=== PATIENT | female | born 1990 | race Caucasian/White ===

== ENCOUNTER 2016-09-25 22:01 | Emergency (ER) | payer SELFPAY ==
[~2016-09-25] VITALS: Ht 157.5 cm; Wt 70.5 kg
[2016-09-25 22:16] VITALS: Ht 157.5 cm; Wt 70.5 kg
== END 2016-09-25 22:21 | disposition left against medical advice (07) ==
LOC: FTE 22:01
DX: Z53.21 Procedure and treatment not carried out due to patient leaving prior to being seen by health care provider (principal)